=== PATIENT | female | born 1995 | race Hispanic/Latino ===

== ENCOUNTER 2021-04-10 00:44 | Emergency (ER) | payer SELFPAY ==
[~2021-04-10] VITALS: Ht 154.9 cm; Wt 74.8 kg
[2021-04-10] MEDS ORDERED: AZITHROMYCIN250 MG PO (01:18)
[2021-04-10] MEDS ORDERED: PREDNISONE20 MG PO (01:18)
[2021-04-10] MEDS ORDERED: PREDNISONE 20 MG TAB PO STA (01:32)
[2021-04-10] MEDS ORDERED: IBUPROFEN 600 MG TAB PO STA (01:32)
[2021-04-10] MEDS ORDERED: IBUPROFEN 600 MG TAB ONE (01:44)
[2021-04-10] MEDS ORDERED: PREDNISONE 20 MG TAB ONE (01:44)
== END 2021-04-10 02:11 | disposition home or self-care (01) ==
LOC: FSED 01:20
DX: R05 Cough (principal); J02.9 Acute pharyngitis, unspecified
CPT/HCPCS: 99283; J7512

== ENCOUNTER 2025-07-08 21:31 | Emergency (ER) | payer SELFPAY ==
[~2025-07-08] VITALS: Ht 154.9 cm; Wt 70.8 kg
[~2025-07-08 21:31] MED LIST: AZITHROMYCIN250 MG PO; PREDNISONE20 MG PO
[2025-07-08 21:40] VITALS: PULSE 88; RESP 16; TEMP 98
[2025-07-08] MEDS ORDERED: PENICILLIN V P500 MG PO (21:57)
[2025-07-08 22:07] VITALS: BP 118/81; PULSE 88; RESP 16; TEMP 98; O2SAT 99
== END 2025-07-08 22:10 | disposition home or self-care (01) ==
LOC: FSED 21:36
DX: K08.89 Other specified disorders of teeth and supporting structures (principal); K02.9 Dental caries, unspecified
CPT/HCPCS: 99283